=== PATIENT | female | born 1950 | race Caucasian/White ===

== ENCOUNTER → 2018-06-29 | Outpatient (CLI) | payer OTHER | END | disposition home or self-care (01) | LOC: LAB SHORT 08:18 → PLD 08:18 | DX: D48.5 Neoplasm of uncertain behavior of skin (principal) | CPT/HCPCS: 88305 ==

== ENCOUNTER → 2021-01-09 | Outpatient (CLI) | payer OTHER | END | disposition home or self-care (01) | LOC: LAB 07:23 → LAB SHORT 07:23 | DX: D48.5 Neoplasm of uncertain behavior of skin (principal) | CPT/HCPCS: 88305 ==

== ENCOUNTER → 2021-10-16 | Outpatient (CLI) | payer OTHER | END | disposition home or self-care (01) | LOC: LAB 07:23 → PLD 07:23 → LAB SHORT 07:23 | DX: L57.0 Actinic keratosis (principal) | CPT/HCPCS: 88305; 88312; 88313 ==

== ENCOUNTER 2021-12-08 16:29 | Observation (INO) | payer OTHER ==
[~2021-12-08] VITALS: Ht 165.1 cm; Wt 72.1 kg
[2021-12-08 17:20] LABS: BASOPHILS ABSOLUTE AUTO 0.06 K/mm3 (0.00-0.23); BASOPHILS PERCENT AUTO 1 % (0-2); EOSINOPHILS ABSOLUTE AUTO 0.01 K/mm3 (0.00-0.68); EOSINOPHILS PERCENT AUTO 0 % (0-6); Hemoglobin 15.6 g/dL (11.5-16.0); IMMATURE GRAN ABSOLUTE AUTO 0.11 K/mm3 (0.00-0.10); IMMATURE GRAN PERCENT AUTO 1 % (0-1); LYMPHOCYTES ABSOLUTE AUTO 1.32 K/mm3 (0.84-5.20); LYMPHOCYTES PERCENT AUTO 11 % (21-46); MONOCYTES ABSOLUTE AUTO 0.58 K/mm3 (0.16-1.47); MONOCYTES PERCENT AUTO 5 % (4-13); Mean Corpuscular HGB 32.2 pg (26.0-34.0); Mean Corpuscular HGB Conc 34.7 g/dL (31.5-36.5); Mean Corpuscular Volume 93 fL (80-100); Mean Platelet Volume 10.6 fL (9.1-12.4); NEUTROPHILS ABSOLUTE AUTO 10.13 K/mm3 (1.96-9.15); NEUTROPHILS PERCENT AUTO 83 % (41-73); Platelet Count 241 K/mm3 (150-400); RDW Coefficient Variation 13.9 % (11.7-14.2); RDW Standard Deviation 47.9 fL (35.1-46.3); Red Blood Cell Count 4.84 M/mm3 (3.80-5.20); White Blood Cell Count 12.21 K/mm3 (4.00-11.30)
[2021-12-08 17:36] LABS: Albumin, Blood 3.8 g/dL (3.4-5.0); Bilirubin, Total 0.6 mg/dL (0.1-1.0); Bun/Creatinine Ratio 22.4 (12.0-20.0); Calcium, Blood 9.9 mg/dL (8.5-10.1); Creatinine, Blood 1.16 mg/dL (0.40-1.00); Globulin, Blood 3.8 g/dL (2.2-4.0); Potassium, Blood 3.4 mmol/L (3.5-5.5); Total Protein, Blood 7.6 g/dL (6.4-8.2)
[2021-12-08] MEDS ORDERED: HYDCHL50 (20:18)
[2021-12-08] MEDS ORDERED: ATEN25 PO (20:18)
--- NOTE | 2021-12-08 22:54 | NUR ---
PATIENT IS A NEW ADMIT FROM THE ED. AXO X 4 AND TWO ASSIST TRANSFER FROM [facility] TO BED. REPORTS MILD SYNCOPE AND WOULD NOT BE ABLE TO GET UP W/O ASSISTANCE. DENIES CHEST PAIN, SOB, AND N/V. PERMISSIVE HYPERTENSION. PATIENT ORIENTED TO ROOM AND CALL LIGHT SYSTEM. NS INFUSING. TELEMETRY PLACED AND TECH REPORTS NSR 72. SON PRESENT IN ROOM AND WILL STAY THE NIGHT. BLANKET, CHAIR, AND PILLOWS PROVIDED. MRI FORM FILLED OUT AND FAXED. PATIENT REPORTS WANTING TO SLEEP AFTER ADMIT COMPLETE. CALL LIGHT IN REACH.
--- NOTE | 2021-12-09 04:25 | NUR ---
SHIFT SUMMARY PATIENT REPORTED MILD DIZZINESS X ONE. SCHEDULE ANTIVERT 25 MG GIVEN PER EMAR. AXOX 4 AND SBA TO BSC/BR. DENIES CHEST PAIN, SOB, AND N/V. PERMISSIVE HYPERTENSION/AFEBRILE. TELE MONITOR NSR @ 72. PIV REMAINS INTACT. NS INFUSING AT 200 mL/HR X ONE. MRI FORM FAXED IN. SON STAYED FOR THE NIGHT. COOPERATIVE WITH CARE. CALL LIGHT IN REACH. BED IN LOWEST POSITION. WILL CONTINUE TO MONITOR UNTIL DAY SHIFT NURSE ASSUMES CARE.
[2021-12-09 05:24] LABS: BASOPHILS ABSOLUTE AUTO 0.04 K/mm3 (0.00-0.23); BASOPHILS PERCENT AUTO 0 % (0-2); EOSINOPHILS ABSOLUTE AUTO 0.04 K/mm3 (0.00-0.68); EOSINOPHILS PERCENT AUTO 0 % (0-6); Hematocrit 41.2 % (33.0-51.0); Hemoglobin 14.3 g/dL (11.5-16.0); IMMATURE GRAN ABSOLUTE AUTO 0.04 K/mm3 (0.00-0.10); IMMATURE GRAN PERCENT AUTO 0 % (0-1); LYMPHOCYTES ABSOLUTE AUTO 2.56 K/mm3 (0.84-5.20); LYMPHOCYTES PERCENT AUTO 23 % (21-46); MONOCYTES ABSOLUTE AUTO 1.33 K/mm3 (0.16-1.47); MONOCYTES PERCENT AUTO 12 % (4-13); Mean Corpuscular HGB 32.2 pg (26.0-34.0); Mean Corpuscular HGB Conc 34.7 g/dL (31.5-36.5); Mean Corpuscular Volume 93 fL (80-100); Mean Platelet Volume 10.3 fL (9.1-12.4); NEUTROPHILS ABSOLUTE AUTO 7.33 K/mm3 (1.96-9.15); NEUTROPHILS PERCENT AUTO 65 % (41-73); Platelet Count 211 K/mm3 (150-400); RDW Coefficient Variation 13.9 % (11.7-14.2); RDW Standard Deviation 47.2 fL (35.1-46.3); Red Blood Cell Count 4.44 M/mm3 (3.80-5.20); White Blood Cell Count 11.34 K/mm3 (4.00-11.30)
[2021-12-09 06:07] LABS: CHOL/HDL RATIO 1.7; Cholesterol 178 mg/dL (50-200); HDL Cholesterol 106 mg/dL (>39); LDL/HDL RATIO 0.5; Low Density Lipoprotein Chol 57 mg/dL (0-110); Triglycerides 75 mg/dL (30-160); Very Low Density Lipoprot Chol 15 mg/dL (6-32)
--- NOTE | 2021-12-09 07:04 | NUR ---
REPORT FROM SUGEY NORIEGA, PATIENT RESTING, RESP EVEN AND NONLABORED, MAKENZIE SON AT BEDSIDE, CALL LIGHT WITH IN REACH
--- NOTE | 2021-12-09 10:10 | NUR ---
PATIENT BACK FROM MRI, DENIES PAIN, NAUSEA, OR PAIN PRESENTLY. SON SUGEY AT BEDSIDE HELPFUL WITH CARE
[2021-12-09] MEDS ORDERED: ASPI81CH PO (14:01)
[2021-12-09] MEDS ORDERED: MECL25 PO (14:01)
== END 2021-12-09 14:34 | disposition home or self-care (01) ==
LOC: ER 16:29 → ERHOLD 16:30 → MEDS 21:31
PROVIDERS: Emergency Medicine; Nurse Practitioner Acute Care; ADMIT Internal Medicine
DX: H81.10 Benign paroxysmal vertigo, unspecified ear (principal); E87.1 Hypo-osmolality and hyponatremia; E87.6 Hypokalemia; E86.9 Volume depletion, unspecified; I16.0 Hypertensive urgency; R27.0 Ataxia, unspecified; E78.00 Pure hypercholesterolemia, unspecified; F17.210 Nicotine dependence, cigarettes, uncomplicated; D72.829 Elevated white blood cell count, unspecified; R73.9 Hyperglycemia, unspecified
CPT/HCPCS: 36415; 70450; 70544; 70551; 80053; 80061; 83036; 84484; 85025; 93005; 93010; 97116; 97161; 99285-25; A9270; G0378; J1650; J7030